=== PATIENT | female | born 1990 | race Caucasian/White ===

== ENCOUNTER → 2018-01-08 | Outpatient (CLI) | payer OTHER ==
[~2018-01-08] MED LIST: ACIDOPHILUS1 EAC1 PO; ALPR.5 PO; CEPH500; CLON2 PO; Cefpodoxime Pr100 MG PO; DIAZ5 PO; ERGO400 PO; FISH1000 PO; FOLGARD TABLET1 EACH PO; IBUP800; IBUP800 PO; IRON 100 PLUS1 EACH PO; LAMO100 PO; NAPR500 PO; NITR100CA PO; OXYACE5T; OXYACE5T PO; PR NATAL 400 C1 EACH PO; Percocet 5-3251 EACH PO; Pyridium200 MG PO; QUET100 PO; ZOLP10 PO
== END | disposition home or self-care (01) ==
LOC: LAB SHORT 16:03 → LAB 16:03
PROVIDERS: Obstetrics & Gynecology
DX: Z12.4 Encounter for screening for malignant neoplasm of cervix (principal)
CPT/HCPCS: G0123

== ENCOUNTER 2019-06-15 02:14 | Inpatient (IN) | payer BC, OTHER ==
[~2019-06-15] VITALS: Ht 167.6 cm; Wt 71.8 kg
[2019-06-15 02:39] LABS: Source, Urine Clean Catch
[2019-06-15 02:42] LABS: Appearance, Urine Clear (Clear); Bilirubin, Urine Neg (Neg); Blood, Urine 5+ (Neg); Color, Urine Yellow (P-Yellow); Glucose Qualitative, Urine Neg (Neg); Ketones, Urine Neg (Neg); Leukocyte Esterase, Urine 1+ (Neg); Nitrite, Urine Neg (Neg); Protein, Urine Neg (Neg); Urobilinogen, Urine NORM (Normal)
[2019-06-15 02:48] LABS: Bacteria Many /hpf; Red Blood Cells, Urine 0-2 /hpf (0-2); Squamous Epithelial Cells Many /hpf (Few)
[2019-06-15 04:19] LABS: BASOPHILS ABSOLUTE AUTO 0.02 K/mm3 (0.00-0.23); BASOPHILS PERCENT AUTO 0 % (0-2); EOSINOPHILS ABSOLUTE AUTO 0.12 K/mm3 (0.00-0.68); EOSINOPHILS PERCENT AUTO 1 % (0-6); Hematocrit 33.5 % (33.0-51.0); Hemoglobin 11.4 g/dL (11.5-16.0); IMMATURE GRAN ABSOLUTE AUTO 0.04 K/mm3 (0.00-0.10); IMMATURE GRAN PERCENT AUTO 0 % (0-1); LYMPHOCYTES ABSOLUTE AUTO 1.33 K/mm3 (0.84-5.20); LYMPHOCYTES PERCENT AUTO 13 % (21-46); MONOCYTES ABSOLUTE AUTO 0.52 K/mm3 (0.16-1.47); MONOCYTES PERCENT AUTO 5 % (4-13); Mean Corpuscular HGB 30.3 pg (26.0-34.0); Mean Corpuscular Volume 89 fL (80-100); Mean Platelet Volume 11.4 fL (9.1-12.4); NEUTROPHILS ABSOLUTE AUTO 7.87 K/mm3 (1.96-9.15); NEUTROPHILS PERCENT AUTO 80 % (41-73); Platelet Count 144 K/mm3 (150-400); RDW Coefficient Variation 12.4 % (11.7-14.2); RDW Standard Deviation 40.4 fL (35.1-46.3); Red Blood Cell Count 3.76 M/mm3 (3.80-5.20)
[2019-06-15] MEDS ORDERED: LAMICTAL200 MG PO (07:44)
[2019-06-15] MEDS ORDERED: Seroquel Xr50 MG PO (07:45)
--- NOTE | 2019-06-15 11:35 | NUR ---
06/15/19 1135 Mckenna Nolasco REPEAT SECTION AND VIABLE FEMALE INFANT. APGARS 7/9. WEIGHT 7-10 ([id number]). CORD BLOOD GIVEN TO BABY RN. CORD SEGEMENT GIVEN TO RT.
[2019-06-16 05:24] LABS: BASOPHILS ABSOLUTE AUTO 0.02 K/mm3 (0.00-0.23); BASOPHILS PERCENT AUTO 0 % (0-2); EOSINOPHILS ABSOLUTE AUTO 0.15 K/mm3 (0.00-0.68); EOSINOPHILS PERCENT AUTO 2 % (0-6); Hematocrit 34.9 % (33.0-51.0); Hemoglobin 11.6 g/dL (11.5-16.0); IMMATURE GRAN ABSOLUTE AUTO 0.04 K/mm3 (0.00-0.10); IMMATURE GRAN PERCENT AUTO 0 % (0-1); LYMPHOCYTES ABSOLUTE AUTO 1.62 K/mm3 (0.84-5.20); LYMPHOCYTES PERCENT AUTO 17 % (21-46); MONOCYTES ABSOLUTE AUTO 0.47 K/mm3 (0.16-1.47); MONOCYTES PERCENT AUTO 5 % (4-13); Mean Corpuscular HGB 31.3 pg (26.0-34.0); Mean Corpuscular HGB Conc 33.2 g/dL (31.5-36.5); Mean Platelet Volume 11.2 fL (9.1-12.4); NEUTROPHILS ABSOLUTE AUTO 7.52 K/mm3 (1.96-9.15); NEUTROPHILS PERCENT AUTO 77 % (41-73); Platelet Count 151 K/mm3 (150-400); RDW Coefficient Variation 12.6 % (11.7-14.2); RDW Standard Deviation 43.7 fL (35.1-46.3); Red Blood Cell Count 3.71 M/mm3 (3.80-5.20); White Blood Cell Count 9.82 K/mm3 (4.00-11.30)
[2019-06-16 05:26] LABS: Mean Corpuscular Volume 94 fL (80-100)
--- NOTE | 2019-06-16 11:00 | NUR ---
PATIENT ALREADY HAS ACCOUNT SET UP THROUGH [email or web address]
--- NOTE | 2019-06-16 15:55 | NUR ---
CONSULT. MOM IS EXPERIENCED WITH BF, HAS USED SHIELD BOTH OTHER BABY'S, NIPPLES DO NOT CAMPBELL WITH STIMULATION, BABY SUCKLING, OR PUMPING. CURRENTLY AREOLA IS PLIABLE AND DEMO TO MOM HOW TO PRESENT NIPPLE AREA TO BABY TO HELP HER OBTAIN A LATCH. CURRENTLY BABY IS ASLEEP AND NOT ROUSING. INSTRUCT TO TRY TO SEE IF BABY CAN DIRECT LATCH AFTER ENGORGEMENT STARTS TO EASE, START WITH SHIELD FOR SEVERAL MINUTES, THEN REMOVE SHIELD AND TRY TO DIRECT LATCH. INSTRUCT IN CHANGES TO EXPECT DURING THE FIRST WEEK WITH FEEDINGS AND WITH BABY AND REFERRED TO BF BOOKLET FOR PHOTOS AND INFORMATION. QUESTIONS ANSWERED. WILL CALL IF SHE FEELS LIKE SHE NEEDS MORE HELP.
--- NOTE | 2019-06-17 12:36 | NUR ---
DISCHARGE INSTRUCTIONS, WRITTEN AND VERBAL, GIVEN TO PT. ANSWERED ALL QUESTIONS AND CONCERNS. FOLLOW UP APPOINTMENT SCHEDULE. PERSONAL BELONGINGS BEING GATHERED. AWAITING DISCHARGE INSTRUCTIONS FROM DR. GOLDMAN.
--- NOTE | 2019-06-17 15:47 | NUR ---
PT IS DISCHARGED TO [facility] STAT[facility] AT 1515.
== END 2019-06-17 15:15 | disposition home or self-care (01) | DRG 788 ==
LOC: OBS 02:14 → BC 02:15 → OBS 08:45 → BC 08:46
PROVIDERS: Advanced Practice Midwife; ADMIT Obstetrics & Gynecology
PROC: 10D00Z1 Extraction of Products of Conception, Low, Open Approach (ICD-10-PCS; principal; 2019-06-15 11:45)
DX: O34.211 Maternal care for low transverse scar from previous cesarean delivery (principal); O77.0 Labor and delivery complicated by meconium in amniotic fluid; Z3A.38 38 weeks gestation of pregnancy; Z37.0 Single live birth
CPT/HCPCS: 36415; 81001; 82803; 85025; 86850; 86900; 86901; 87086; J0694; J1885; J2405; J2590; J2765; J3010; J7120

== ENCOUNTER → 2021-07-17 | Outpatient (CLI) | payer BC, OTHER ==
[~2021-07-17] MED LIST changes: +LAMICTAL200 MG PO; +Seroquel Xr50 MG PO
== END | disposition home or self-care (01) ==
LOC: LAB SHORT 11:54
DX: R30.0 Dysuria (principal)
CPT/HCPCS: 87086

== ENCOUNTER 2021-07-21 04:31 | Emergency (ER) | payer BC, OTHER ==
[~2021-07-21] VITALS: Ht 167.6 cm; Wt 55.3 kg
[2021-07-21] MEDS ORDERED: BUPR75 (05:09)
[2021-07-21 05:10] LABS: Source, Urine Clean Catch
[2021-07-21] MEDS ORDERED: CLON1 (05:10)
[2021-07-21 05:15] LABS: Blood, Urine 5+ (Neg); Glucose Qualitative, Urine Neg (Neg); Ketones, Urine Neg (Neg); Leukocyte Esterase, Urine 3+ (Neg); Nitrite, Urine Pos (Neg); Protein, Urine 3+ (Neg); Specific Gravity, Urine 1.015 (1.003-1.022); Urobilinogen, Urine 4+ (Normal)
[2021-07-21 05:19] LABS: Bilirubin, Urine 3+ (Neg)
[2021-07-21 05:20] LABS: Appearance, Urine Cloudy (Clear); Color, Urine Orange (P-Yellow)
[2021-07-21 05:23] LABS: Bacteria Many /hpf; Red Blood Cells, Urine TNTC /hpf (0-2); Squamous Epithelial Cells Few /hpf (Few); White Blood Cells, Urine TNTC /hpf (0-5)
[2021-07-21] MEDS ORDERED: MACRODANTIN PO (05:40)
== END 2021-07-21 06:05 | disposition home or self-care (01) ==
LOC: ER 04:31
PROVIDERS: Student in an Organized Health Care Education/Training Program
DX: N39.0 Urinary tract infection, site not specified (principal)
CPT/HCPCS: 81001; 87077; 87086; 87186; A9270

== ENCOUNTER → 2021-08-03 | Outpatient (CLI) | payer BC, OTHER ==
[~2021-08-03] MED LIST changes: +BUPR75; +CLON1; +MACRODANTIN PO
== END | disposition home or self-care (01) ==
LOC: LAB SHORT 18:16
DX: R30.0 Dysuria (principal)
CPT/HCPCS: 87086

== ENCOUNTER 2022-07-02 05:26 | Inpatient (IN) | payer OTHER ==
[~2022-07-02] VITALS: Ht 167.6 cm; Wt 71.2 kg
[2022-07-02 05:59] LABS: BASOPHILS ABSOLUTE AUTO 0.03 K/mm3 (0.00-0.23); BASOPHILS PERCENT AUTO 1 % (0-2); EOSINOPHILS ABSOLUTE AUTO 0.14 K/mm3 (0.00-0.68); EOSINOPHILS PERCENT AUTO 2 % (0-6); Hematocrit 33.5 % (33.0-51.0); Hemoglobin 11.5 g/dL (11.5-16.0); IMMATURE GRAN ABSOLUTE AUTO 0.03 K/mm3 (0.00-0.10); IMMATURE GRAN PERCENT AUTO 1 % (0-1); LYMPHOCYTES ABSOLUTE AUTO 1.98 K/mm3 (0.84-5.20); LYMPHOCYTES PERCENT AUTO 31 % (21-46); MONOCYTES ABSOLUTE AUTO 0.39 K/mm3 (0.16-1.47); MONOCYTES PERCENT AUTO 6 % (4-13); Mean Corpuscular HGB 28.6 pg (26.0-34.0); Mean Corpuscular HGB Conc 34.3 g/dL (31.5-36.5); Mean Corpuscular Volume 83 fL (80-100); Mean Platelet Volume 12.9 fL (9.1-12.4); NEUTROPHILS ABSOLUTE AUTO 3.83 K/mm3 (1.96-9.15); NEUTROPHILS PERCENT AUTO 60 % (41-73); Platelet Count 133 K/mm3 (150-400); RDW Standard Deviation 36.4 fL (35.1-46.3); Red Blood Cell Count 4.02 M/mm3 (3.80-5.20)
[2022-07-02] MEDS ORDERED: PRENATAL TABLE1 EAC2 (06:14)
--- NOTE | 2022-07-02 09:18 | NUR ---
07/02/22 0918 Sol Diaz 0904 DELIVERY VIABLE MALE , WEIGHT 3515GM 7# 12OZ, HEAD 13.5 INCHES, CHEST 13 INCHES, LENGTH 20 INCHES, APGARS 8/8, MECONIUM PRESENT
--- NOTE | 2022-07-02 13:28 | NUR ---
ASSUMED CARE RPT FOR Myriam HOWELL RN
--- NOTE | 2022-07-02 15:55 | NUR ---
PAIN SPOKE W/BAILEE RN RELATED TO PT PAIN STILL 04/07 - RN PLANS TO CALL DR GOLDMAN
--- NOTE | 2022-07-02 19:08 | NUR ---
REPT TO Hellen MACK RN
[2022-07-03 08:21] LABS: BASOPHILS ABSOLUTE AUTO 0.02 K/mm3 (0.00-0.23); BASOPHILS PERCENT AUTO 0 % (0-2); EOSINOPHILS ABSOLUTE AUTO 0.18 K/mm3 (0.00-0.68); EOSINOPHILS PERCENT AUTO 3 % (0-6); Hematocrit 32.2 % (33.0-51.0); Hemoglobin 10.5 g/dL (11.5-16.0); IMMATURE GRAN ABSOLUTE AUTO 0.04 K/mm3 (0.00-0.10); IMMATURE GRAN PERCENT AUTO 1 % (0-1); LYMPHOCYTES ABSOLUTE AUTO 1.46 K/mm3 (0.84-5.20); LYMPHOCYTES PERCENT AUTO 21 % (21-46); MONOCYTES PERCENT AUTO 4 % (4-13); Mean Corpuscular HGB 27.7 pg (26.0-34.0); Mean Corpuscular HGB Conc 32.6 g/dL (31.5-36.5); Mean Corpuscular Volume 85 fL (80-100); Mean Platelet Volume 12.5 fL (9.1-12.4); NEUTROPHILS ABSOLUTE AUTO 4.99 K/mm3 (1.96-9.15); NEUTROPHILS PERCENT AUTO 71 % (41-73); Platelet Count 120 K/mm3 (150-400); RDW Coefficient Variation 12.3 % (11.7-14.2); RDW Standard Deviation 38.1 fL (35.1-46.3); Red Blood Cell Count 3.79 M/mm3 (3.80-5.20); White Blood Cell Count 6.99 K/mm3 (4.00-11.30)
--- NOTE | 2022-07-04 11:53 | NUR ---
up amb in room, feels like the start of having to poop soon, but not yet. reports has taken mom and colace this morning,
--- NOTE | 2022-07-04 13:44 | NUR ---
dr tapia updated pt will be going to icu bed 6, dr tapia updating pt family member of pt being transfered, updating on whats been happening, and that will possibly be getting blood products. will wait for DA rn to come back then will help transfer pt upstairs.
--- NOTE | 2022-07-04 13:59 | NUR ---
service delivery supervisor called for update, working on a room. may not go to icu, service delivery supervisor will call back
--- NOTE | 2022-07-04 14:18 | NUR ---
report to RADHA lugo
[2022-07-04] MEDS ORDERED: IBU800 M1 PO (15:11)
[2022-07-04] MEDS ORDERED: Percocet 5-3251 EACH PO (15:11)
--- NOTE | 2022-07-04 16:30 | NUR ---
Printed d/c instructions and teaching reviewed pt who is an experienced mother. Questions answered to her satisfaction. No acute changes t/o shift. ID bands matched verification form and nb. Pt d/c'd home ambulatory to care of .
== END 2022-07-04 16:40 | disposition home or self-care (01) | DRG 788 ==
LOC: BC 05:26
PROVIDERS: ADMIT Obstetrics & Gynecology
PROC: 10D00Z1 Extraction of Products of Conception, Low, Open Approach (ICD-10-PCS; principal; 2022-07-02 07:30)
DX: O34.211 Maternal care for low transverse scar from previous cesarean delivery (principal); O48.0 Post-term pregnancy; Z3A.40 40 weeks gestation of pregnancy; Z37.0 Single live birth; Z79.899 Other long term (current) drug therapy
CPT/HCPCS: 36415; 85025; 86850; 86900; 86901; 86923; A9270; J0694; J1885; J2270; J2765; J3010; J7120

== ENCOUNTER → 2022-07-14 | Outpatient (CLI) | payer OTHER ==
[~2022-07-14] MED LIST changes: +Bupropion HCl75 MG PO; +IBU800 M1 PO; +PRED20 PO; +PRENATAL TABLE1 EAC2
[2022-07-14 14:10] LABS: BASOPHILS ABSOLUTE AUTO 0.01 K/mm3 (0.00-0.23); BASOPHILS PERCENT AUTO 0 % (0-2); EOSINOPHILS PERCENT AUTO 0 % (0-6); Hematocrit 41.2 % (33.0-51.0); Hemoglobin 13.6 g/dL (11.5-16.0); IMMATURE GRAN ABSOLUTE AUTO 0.04 K/mm3 (0.00-0.10); IMMATURE GRAN PERCENT AUTO 0 % (0-1); LYMPHOCYTES ABSOLUTE AUTO 1.99 K/mm3 (0.84-5.20); LYMPHOCYTES PERCENT AUTO 16 % (21-46); MONOCYTES ABSOLUTE AUTO 0.37 K/mm3 (0.16-1.47); MONOCYTES PERCENT AUTO 3 % (4-13); Mean Corpuscular HGB 27.9 pg (26.0-34.0); Mean Corpuscular Volume 85 fL (80-100); Mean Platelet Volume 11.3 fL (9.1-12.4); NEUTROPHILS PERCENT AUTO 81 % (41-73); Platelet Count 397 K/mm3 (150-400); RDW Coefficient Variation 12.8 % (11.7-14.2); RDW Standard Deviation 39.2 fL (35.1-46.3); Red Blood Cell Count 4.87 M/mm3 (3.80-5.20); White Blood Cell Count 12.71 K/mm3 (4.00-11.30)
[2022-07-14 14:24] LABS: Albumin, Blood 3.8 g/dL (3.4-5.0); Albumin/Globulin Ratio 0.9 (0.8-1.8); Bilirubin, Total 0.6 mg/dL (0.1-1.0); Bun/Creatinine Ratio 23.7 (12.0-20.0); Calcium, Blood 9.5 mg/dL (8.5-10.1); Creatinine, Blood 0.93 mg/dL (0.40-1.00); Globulin, Blood 4.3 g/dL (2.2-4.0); Potassium, Blood 4.1 mmol/L (3.5-5.5); Total Protein, Blood 8.1 g/dL (6.4-8.2)
== END | disposition home or self-care (01) ==
LOC: LAB SHORT 14:02 → LAB 14:02
PROVIDERS: Physician Assistant Medical
DX: R21 Rash and other nonspecific skin eruption (principal)
CPT/HCPCS: 80053; 85025

== ENCOUNTER → 2023-02-18 | Outpatient (CLI) | payer OTHER | END | disposition home or self-care (01) | LOC: LAB 11:23 → LAB SHORT 11:23 | DX: R35.0 Frequency of micturition (principal) | CPT/HCPCS: 87086 ==

== ENCOUNTER → 2023-03-10 | Outpatient (CLI) | payer OTHER | END | disposition home or self-care (01) | LOC: LAB 16:45 → LAB SHORT 16:45 | DX: R30.0 Dysuria (principal) | CPT/HCPCS: 87077; 87086; 87186 ==

== ENCOUNTER 2023-04-07 23:26 | Emergency (ER) | payer OTHER ==
[~2023-04-07] VITALS: Ht 167.6 cm; Wt 57.1 kg
[2023-04-07 23:45] VITALS: BP 121/98
[2023-04-08 00:35] LABS: Source, Urine Clean Catch
[2023-04-08 00:55] LABS: Blood, Urine 3+ (Neg); Glucose Qualitative, Urine Neg (Neg); Ketones, Urine Neg (Neg); Leukocyte Esterase, Urine 1+ (Neg); Nitrite, Urine Pos (Neg); Protein, Urine 1+ (Neg); Specific Gravity, Urine 1.025 (1.003-1.022); Urobilinogen, Urine 3+ (Normal)
[2023-04-08 00:56] LABS: Bilirubin, Urine 3+ (Neg)
[2023-04-08 00:57] LABS: Appearance, Urine Clear (Clear); Color, Urine Orange (P-Yellow)
[2023-04-08 01:05] LABS: Bacteria Rare /hpf; Red Blood Cells, Urine 25-50 /hpf (0-2); Squamous Epithelial Cells Rare /hpf (Few); White Blood Cells, Urine 0-2 /hpf (0-5)
== END 2023-04-08 01:20 | disposition home or self-care (01) ==
LOC: ER 23:26
PROVIDERS: Physician Assistant
DX: R30.0 Dysuria (principal); Z79.52 Long term (current) use of systemic steroids
CPT/HCPCS: 81001; 87086; 99284

== ENCOUNTER → 2023-05-10 | Outpatient (CLI) | payer OTHER | END | disposition home or self-care (01) | LOC: LAB SHORT 12:23 → LAB 12:23 | DX: R30.9 Painful micturition, unspecified (principal) | CPT/HCPCS: 87086 ==

== ENCOUNTER → 2023-07-12 | Outpatient (CLI) | payer OTHER | LOC: LAB 17:37 → LAB SHORT 17:37 | DX: R30.0 Dysuria (principal) | CPT/HCPCS: 87086 ==

== ENCOUNTER → 2023-09-04 | Outpatient (CLI) | payer OTHER ==
[~2023-09-04] MED LIST changes: +BUPR150ER PO; +CLON.5 PO; +Lamictal200 MG PO; +Toviaz8 MG PO
== END ==
LOC: LAB 09:33 → LAB SHORT 09:33
DX: R30.0 Dysuria (principal)
CPT/HCPCS: 87086

== ENCOUNTER 2023-09-07 22:13 | Observation (INO) | payer OTHER ==
[~2023-09-07] VITALS: Ht 167.6 cm; Wt 54.4 kg
[~2023-09-07 22:13] MED LIST changes: -BUPR150ER PO; -CLON.5 PO; -Lamictal200 MG PO; -Toviaz8 MG PO
[2023-09-07 23:40] LABS: BASOPHILS ABSOLUTE AUTO 0.03 K/mm3 (0.00-0.23); BASOPHILS PERCENT AUTO 1 % (0-2); EOSINOPHILS ABSOLUTE AUTO 0.39 K/mm3 (0.00-0.68); EOSINOPHILS PERCENT AUTO 10 % (0-6); Hematocrit 35.7 % (33.0-51.0); IMMATURE GRAN PERCENT AUTO 0 % (0-1); LYMPHOCYTES ABSOLUTE AUTO 2.48 K/mm3 (0.84-5.20); LYMPHOCYTES PERCENT AUTO 61 % (21-46); MONOCYTES ABSOLUTE AUTO 0.14 K/mm3 (0.16-1.47); MONOCYTES PERCENT AUTO 3 % (4-13); Mean Corpuscular HGB 30.2 pg (26.0-34.0); Mean Corpuscular HGB Conc 33.6 g/dL (31.5-36.5); Mean Corpuscular Volume 90 fL (80-100); Mean Platelet Volume 11.8 fL (9.1-12.4); NEUTROPHILS ABSOLUTE AUTO 1.05 K/mm3 (1.96-9.15); NEUTROPHILS PERCENT AUTO 26 % (41-73); Platelet Count 141 K/mm3 (150-400); RDW Coefficient Variation 12.2 % (11.7-14.2); Red Blood Cell Count 3.98 M/mm3 (3.80-5.20); White Blood Cell Count 4.09 K/mm3 (4.00-11.30)
[2023-09-07 23:41] LABS: Source, Urine Clean Catch
[2023-09-07 23:45] LABS: Bilirubin, Urine Neg (Neg); Blood, Urine Neg (Neg); Glucose Qualitative, Urine Neg (Neg); Ketones, Urine Neg (Neg); Leukocyte Esterase, Urine 2+ (Neg); Nitrite, Urine Neg (Neg); Protein, Urine 1+ (Neg); Urobilinogen, Urine 1+ (Normal)
[2023-09-07 23:56] LABS: Color, Urine Yellow (P-Yellow)
[2023-09-07 23:57] LABS: Appearance, Urine Hazy (Clear)
[2023-09-07 23:58] LABS: Amorphous Light (0-Heavy); Bacteria Mod /hpf; Red Blood Cells, Urine 0-2 /hpf (0-2); Squamous Epithelial Cells Mod /hpf (Few)
[2023-09-08 00:10] LABS: U Benzodiazapine Screen DETECTED; U Cannabinoids Screen DETECTED
[2023-09-08 00:11] LABS: U Amphetamine Screen Not Detected; U Barbituate Screen Not Detected; U Buprenorphine Screen Not Detected; U Cocaine Screen Not Detected; U Methadone Screen Not Detected; U Methamphetamine Screen Not Detected; U Opiates Screen Not Detected; U Oxycodone Screen Not Detected; U Phencyclidine Screen Not Detected
[2023-09-08 00:14] LABS: Ethanol (Alcohol), Blood, Med 37 mg/dL; Salicylate <1.7 mg/dL (2.8-20.0)
[2023-09-08 00:19] LABS: Acetaminophen, Random <2.0 ug/mL (10.0-30.0); Alanine Aminotransfer (ALT/SGP 24 U/L (12-78); Albumin, Blood 3.8 g/dL (3.4-5.0); Albumin/Globulin Ratio 1.3 (0.8-1.8); Alk Phos 40 U/L (50-136); Anion Gap 1 mmol/L (6-16); Aspartate Aminotrans (AST/SGOT 33 U/L (12-37); Bilirubin, Total 0.2 mg/dL (0.1-1.0); Blood Urea Nitrogen 15 mg/dL (8-24); Bun/Creatinine Ratio 18.6 (12.0-20.0); CO2, Blood 27 mmol/L (21-32); Calcium, Blood 8.4 mg/dL (8.5-10.1); Chloride, Blood 113 mmol/L (98-108); Creatinine, Blood 0.81 mg/dL (0.40-1.00); Glomerular Filtration Rate 99 (60-); Glucose, Blood 99 mg/dL (70-99); Potassium, Blood 4.2 mmol/L (3.5-5.5); Sodium, Blood 141 mmol/L (136-145); Total Protein, Blood 6.8 g/dL (6.4-8.2)
[2023-09-08] MEDS ORDERED: ChlordiazePOXIDE 25 MG Cap PO PRN (11:40)
[2023-09-08] MEDS ORDERED: CloNIDine 0.1 MG Tab PO PRN (11:40)
[2023-09-08] MEDS ORDERED: LORazepam 1 MG Tab PO PRN (11:40)
[2023-09-09 09:59] VITALS: BP 129/90
[2023-09-09] MEDS ORDERED: LamoTRIgine 100 MG Tab PO SCH (12:00)
[2023-09-09] MEDS ORDERED: buPROPion HCL 150 MG TAB.SR.12H PO SCH (12:00)
[2023-09-09] MEDS ORDERED: BUPR150ER PO (12:03)
[2023-09-09] MEDS ORDERED: Lamictal200 MG PO (12:03)
[2023-09-09] MEDS ORDERED: Toviaz8 MG PO (12:04)
[2023-09-09] MEDS ORDERED: CLON.5 PO (12:04)
[2023-09-09] MEDS ORDERED: Buprenorphine HCL/Naloxone HCL 2-0.5MG 1 EA SL ONE (14:35)
[2023-09-09] MEDS ORDERED: QUEtiapine Fumarate 100 MG Tab PO SCH (21:00)
== END 2023-09-09 20:25 ==
LOC: ER 22:13 → EOR 22:14
PROVIDERS: ADMIT Student in an Organized Health Care Education/Training Program
DX: F31.81 Bipolar II disorder (principal); R45.851 Suicidal ideations; F12.90 Cannabis use, unspecified, uncomplicated; Z79.899 Other long term (current) drug therapy
CPT/HCPCS: 80053; 81001; 81025; 85025; 87086; 93005; 93010; 99285-25; A9270; G0378; G0480; J0572

== ENCOUNTER → 2023-09-17 | Outpatient (CLI) | payer OTHER ==
[~2023-09-17] MED LIST changes: +BUPR150ER PO; +CLON.5 PO; +Lamictal200 MG PO; +Toviaz8 MG PO
[2023-09-17 13:42] LABS: Source, Urine Clean Catch
[2023-09-17 14:52] LABS: Bacteria Many /hpf; Squamous Epithelial Cells Few /hpf (Few); Transitional Epithelial Cells Rare /hpf (0-Rare); White Blood Cells, Urine TNTC /hpf (0-5)
[2023-09-17 14:53] LABS: Red Blood Cells, Urine 0-2 /hpf (0-2)
[2023-09-17 19:17] LABS: U Amphetamine Screen Not Detected; U Barbituate Screen Not Detected; U Benzodiazapine Screen DETECTED; U Buprenorphine Screen DETECTED; U Cannabinoids Screen DETECTED; U Cocaine Screen Not Detected; U Methadone Screen Not Detected; U Methamphetamine Screen Not Detected; U Opiates Screen Not Detected; U Oxycodone Screen Not Detected; U Phencyclidine Screen Not Detected
[2023-09-17 20:43] LABS: Bacterial Vaginosis PCR Negative (NEGATIVE); Candida Group, PCR NOT DETECTED (NOT DETECT); Candida glabrata-krusei, PCR DETECTED (NOT DETECT)
[2023-09-20 18:02] LABS: APTIMA MEDIA TYPE Urine; C. TRACHOMATIS BY TMA Negative (Negative); N. GONORRHOEAE BY TMA Negative (Negative); SPECIMEN SOURCE Urine
[2023-09-21 06:51] LABS: 11-NOR-9-CARBOXY-THC,URN,QUANT >500 ng/mL
[2023-09-21 08:30] LABS: BUPRENORPHINE GLUC,URN,QUANT 265 ng/mL; BUPRENORPHINE,URN,QUANT 13 ng/mL; NALOXONE,URN,QUANT <100 ng/mL; NORBUPRENORPHINE GLUC,UR,QUANT >1000 ng/mL; NORBUPRENORPHINE,URN,QUANT 399 ng/mL
[2023-09-21 13:30] LABS: 7-AMINOCLONAZEPAM, URN, QUANT 492 ng/mL; A-HYDROXYALPRAZOLAM, URN, QNT <5 ng/mL; A-HYDROXYMIDAZOLAM, URN, QNT <20 ng/mL; ALPRAZOLAM, URN, QUANT <5 ng/mL; CHLORDIAZEPOXIDE, URN, QUANT <20 ng/mL; CLONAZEPAM, URN, QUANT 9 ng/mL; DIAZEPAM, URN, QUANT <20 ng/mL; LORAZEPAM, URN, QUANT <20 ng/mL; MIDAZOLAM, URN, QUANT <20 ng/mL; NORDIAZEPAM, URN, QUANT <20 ng/mL; OXAZEPAM, URN, QUANT <20 ng/mL; TEMAZEPAM, URN, QUANT <20 ng/mL
== END | disposition home or self-care (01) ==
LOC: LAB 13:39 → LAB SHORT 13:39
PROVIDERS: Nurse Practitioner Family; Nurse Practitioner Psychiatric/Mental Health
DX: F31.81 Bipolar II disorder (principal); R30.0 Dysuria; Z79.899 Other long term (current) drug therapy
CPT/HCPCS: 81015; 87077; 87086; 87186; 87481; 87491; 87591; 87661; 87801; G0480; G0481

== ENCOUNTER → 2023-11-25 | Outpatient (CLI) | payer OTHER | LOC: LAB 16:55 → LAB SHORT 16:55 | DX: N39.0 Urinary tract infection, site not specified (principal) | CPT/HCPCS: 87077; 87086; 87186 ==

== ENCOUNTER 2024-07-06 13:03 | Inpatient (IN) | payer OTHER ==
[~2024-07-06] VITALS: Ht 167.6 cm; Wt 74.5 kg
[2024-07-06] VITALS (18 sets, daily range): BP systolic 96–118; BP diastolic 54–79
[~2024-07-06 13:03] MED LIST changes: +Citric Acid/Sodium Citrate 30 ML BTL PO SCH; +Lactated Ringer's 1,000 ML IV SCH; +Metoclopramide HCl 5MG / ML 2ML Vial IV ONE
[2024-07-06] MEDS ORDERED: CefOXitin Sodium 2,000 MG in NS 50 ML IV ONE (13:10)
[2024-07-06] MEDS ORDERED: LAMO100 (13:37)
[2024-07-06] MEDS ORDERED: BUPRENORPHINE HC2 MG SL (13:38)
[2024-07-06 13:45] LABS: BASOPHILS ABSOLUTE AUTO 0.02 K/mm3 (0.00-0.23); BASOPHILS PERCENT AUTO 0 % (0-2); EOSINOPHILS ABSOLUTE AUTO 0.21 K/mm3 (0.00-0.68); EOSINOPHILS PERCENT AUTO 3 % (0-6); Hematocrit 30.2 % (33.0-51.0); Hemoglobin 10.3 g/dL (11.5-16.0); IMMATURE GRAN ABSOLUTE AUTO 0.04 K/mm3 (0.00-0.10); IMMATURE GRAN PERCENT AUTO 1 % (0-1); LYMPHOCYTES ABSOLUTE AUTO 1.61 K/mm3 (0.84-5.20); LYMPHOCYTES PERCENT AUTO 22 % (21-46); MONOCYTES ABSOLUTE AUTO 0.31 K/mm3 (0.16-1.47); MONOCYTES PERCENT AUTO 4 % (4-13); Mean Corpuscular HGB 29.9 pg (26.0-34.0); Mean Corpuscular HGB Conc 34.1 g/dL (31.5-36.5); Mean Corpuscular Volume 88 fL (80-100); Mean Platelet Volume 11.8 fL (9.1-12.4); NEUTROPHILS ABSOLUTE AUTO 5.19 K/mm3 (1.96-9.15); NEUTROPHILS PERCENT AUTO 70 % (41-73); Platelet Count 141 K/mm3 (150-400); RDW Coefficient Variation 13.1 % (11.7-14.2); RDW Standard Deviation 41.7 fL (35.1-46.3); Red Blood Cell Count 3.45 M/mm3 (3.80-5.20); White Blood Cell Count 7.38 K/mm3 (4.00-11.30)
[2024-07-06] MEDS ORDERED: ePHEDrine Sulfate 50 MG/ML 1ML Injection ONE (16:46)
[2024-07-06] MEDS ORDERED: FentaNYL Citrate 50 MCG/ML 2 ML Injection ONE (16:46)
[2024-07-06] MEDS ORDERED: Glycopyrrolate 0.2 MG/ML 5ML VIAL ONE (16:46)
--- NOTE | 2024-07-06 17:06 | NUR ---
07/06/24 1706 Ami Girard REPEAT BABY BORN AT 1650, WEIGHT 3580 7-14 HEAD 14.25 CHEST 14 LENGTH 19.5
[2024-07-06] MEDS ORDERED: Ondansetron HCl 2 MG / ML 2ML Vial ONE (17:07)
[2024-07-06] MEDS ORDERED: Ketorolac Tromethamine 30mg Vial ONE (17:07)
[2024-07-06] MEDS ORDERED: Acetaminophen 500 MG Tab PO PRN (17:40)
[2024-07-06] MEDS ORDERED: DiphenhydrAMINE HCL 25 MG Cap PO PRN (17:45)
[2024-07-06] MEDS ORDERED: Methylergonovine Maleate 0.2MG / ML 1ML Amp IM PRN (17:45)
[2024-07-06] MEDS ORDERED: Lactated Ringer's 1,000 ML IV SCH (17:45)
[2024-07-06] MEDS ORDERED: Lanolin Cream TOP PRN (17:45)
[2024-07-06] MEDS ORDERED: Misoprostol 200 MCG Tab PR PRN (17:45)
[2024-07-06] MEDS ORDERED: Simethicone 80 MG Chew PO PRN (17:50)
[2024-07-06] MEDS ORDERED: OxyCODONE 5 mg/Acetamin 325 mg TABLET PO PRN (17:50)
[2024-07-06] MEDS ORDERED: OxyCODONE HCL 5 MG TAB PO PRN (17:50)
[2024-07-06] MEDS ORDERED: OXYTOCIN/RINGER'S LACTATE 500 ML IV SCH (17:50)
[2024-07-06] MEDS ORDERED: Ondansetron HCl 2 MG / ML 2ML Vial IV PRN (17:50)
[2024-07-06] MEDS ORDERED: Ketorolac Tromethamine 30mg Vial IV SCH (18:00)
[2024-07-06] MEDS ORDERED: Ketorolac Tromethamine 30mg Vial IV PRN (20:27)
[2024-07-06] MEDS ORDERED: Docusate Sodium 100 MG Cap PO SCH (21:00)
[2024-07-06] MEDS ORDERED: FentaNYL Citrate 50 MCG/ML 2 ML Injection IV PRN (21:20)
[2024-07-06] MEDS ORDERED: FentaNYL Citrate 50 MCG/ML 2 ML Injection IV ONE ×2 (21:20→23:45)
[2024-07-07] VITALS (7 sets, daily range): BP systolic 109–142; BP diastolic 74–81
[2024-07-07] MEDS ORDERED: Ibuprofen 400 MG Tab PO SCH
--- NOTE | 2024-07-07 00:21 | NUR ---
Pt resting well after several pain medications, heating pad and position changes. Pt has been crying, and guarding incisional sight. notified
[2024-07-07] MEDS ORDERED: fentaNYL citrate 50 MCG/ML 30MLSYR IV PRN (02:30)
[2024-07-07] MEDS ORDERED: fentaNYL citrate 20 MCG/ML 30MLSYR IV PRN (02:50)
--- NOTE | 2024-07-07 03:55 | NUR ---
0228 PT HAS BEEN VERY UNCOMFORTABLE THROUGHOUT THE NIGHT, SEVERAL MEDICATIONS HAVE BEEN USED, REPOSITIONING, ICE PACK, ABDOMINAL BINDER, AND WARM PACK. VITALS HAVE BEEN WNL, PROVIDER NOTIFIED AND REQUESTED FOR PAIN MANAGMENT. CAFE ASSOCIATE ORDERS RECIEVED AND STARTED, PT RESTING AT THIS TIME, CAPNOGRAPHY IN PLACE, PULSE OX IN PLACE, BUTTON WITHIN REACH WITH EDUCATION TO PATIENT OF ONLY HER USE, PT VOICED UNDERSTANDING.
[2024-07-07 06:07] LABS: BASOPHILS ABSOLUTE AUTO 0.02 K/mm3 (0.00-0.23); BASOPHILS PERCENT AUTO 0 % (0-2); EOSINOPHILS ABSOLUTE AUTO 0.22 K/mm3 (0.00-0.68); EOSINOPHILS PERCENT AUTO 3 % (0-6); Hematocrit 28.4 % (33.0-51.0); Hemoglobin 9.5 g/dL (11.5-16.0); IMMATURE GRAN ABSOLUTE AUTO 0.04 K/mm3 (0.00-0.10); IMMATURE GRAN PERCENT AUTO 1 % (0-1); LYMPHOCYTES ABSOLUTE AUTO 1.28 K/mm3 (0.84-5.20); LYMPHOCYTES PERCENT AUTO 16 % (21-46); MONOCYTES ABSOLUTE AUTO 0.55 K/mm3 (0.16-1.47); MONOCYTES PERCENT AUTO 7 % (4-13); Mean Corpuscular HGB 29.5 pg (26.0-34.0); Mean Corpuscular HGB Conc 33.5 g/dL (31.5-36.5); Mean Corpuscular Volume 88 fL (80-100); Mean Platelet Volume 11.9 fL (9.1-12.4); NEUTROPHILS ABSOLUTE AUTO 6.13 K/mm3 (1.96-9.15); NEUTROPHILS PERCENT AUTO 74 % (41-73); Platelet Count 129 K/mm3 (150-400); RDW Coefficient Variation 13.1 % (11.7-14.2); RDW Standard Deviation 42.2 fL (35.1-46.3); Red Blood Cell Count 3.22 M/mm3 (3.80-5.20); White Blood Cell Count 8.24 K/mm3 (4.00-11.30)
--- NOTE | 2024-07-07 06:34 | NUR ---
infant returned to mother, RN assisted positioning for breast feeding and hand expressing, nipple shield tried per mothers request. mother did not want continue to try requesting we take baby and feed donar milk
--- NOTE | 2024-07-07 08:39 | NUR ---
07-07-24 0830THIMary RN HAD A CONVERSATION WITH THE PATIENT WHILE HER WAS IN THE BATHROOM REGARDING HER BUPINORPHRINE USE. 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 SHE STATES THAT DR GOLDMAN TOLD HER THAT IS COULD CAUSE WITHDRAWL IN THE BABY, SO SHE HAS SLOWLY BEEN TAPERING OFF OF IT. SHE STATES THAT SHE HAS NOT TAKEN A DOSE SINCE SATURDAY. RN TOLD THE PATIENT THAT THE COMMUNITY HEALTH SPECIALIST WILL BRING IT UP WHEN SHE COMES, SO IF SHE STILL DOES NOT WANT HER TO KNOW ABOUT IT, THEN SHE WILL NEED TO ASK HIM TO LEAVE, YET BEING TRUTHFUL WITH HIM WOULD BE A BETTER IDEA. PT AGREED WITH THIS. PATIENT WOULD LIKE TO GET UP TO THE SHOWER AND HAVE HER CATHETER OUT ADN THE FENTANYL OFF
[2024-07-07] MEDS ORDERED: Prenatal Vit/FE Fumarate/FA 1 Tab PO SCH (09:00)
[2024-07-07] MEDS ORDERED: OxyCODONE HCL 5 MG TAB PO ONE (10:10)
--- NOTE | 2024-07-07 10:58 | NUR ---
24 1000 PT SAT UP IN CHAIR FOR ABOUT 20 MINUTES AFTER HER SHOWER AND TOLERATED WELL AND THEN CALLED RN TO ASHLEIGH ORTIZUE SHE WAS HAVING MORE PAIN AGAIN. ASSISTED PT TO RETURN TO BED, WARM BLANKET AND K PAD APPLIED TO ABD, AND CALL TO DR GOLDMAN REGARDING ANOTHER 5MG ROXICODE FOR BREAKTHROUGH PAIN. 1050, ASSISTED PT TO BATHROOM, WHICH SHE TOLERATED WELL YET CONTINUES TO BE UNCOMFORTABLE. PT AT THIS TIME STATED THAT SHE TOLD HER ABOUT THE BUPINORPHRINE, AFTER DR GOLDMAN SAID SOMETHING ABOUT IT ON HER ROUNDS, AND PATIENT IS VERY CONCERNED ABOUT WHAT HER FAMILY WILL THINK AND WHY THE BABY WILL STILL HAVE TO STAY IN THE HOSPITAL FOR 5 DAYS TO BE OBSERVED WITH THE ESC PROGRAM. RN ENCOURAGED PT TO CONTINUE TO BE HONEST ABOUT IT AND TO JUST TAKE IT ONE DAY AT A TIME, AND AT THIS MOMENT WE NEED TO HAVE HER MORE COMFORTABLE SO THAT SHE CAN BEGIN TO CARE FOR THE BABY HERSELF. PT ALSO VERBALIZED CONCERNS THAT SHE HAS NOT BEEN ABLE TO HOLD OR ROTHMAN WITH THE BABY BECASUE OF HER PAIN. THIS RN OFFEREND TO STAY IN THE ROOM IF SHE WANTED TO DO SOME SKIN TO SKIN WITH THE BABY AFTER HER FEED. PT WILL THINK ABOUT IT WHILE RN TAKES BABY TO NURSERY TO FEED,
[2024-07-07] MEDS ORDERED: OxyCODONE HCL 5 MG TAB PO PRN ×2 (11:00)
[2024-07-07] MEDS ORDERED: Ketorolac Tromethamine 30mg Vial IV PRN (12:05)
[2024-07-07] MEDS ORDERED: Polyethylene Glycol 3350 17 gm PO SCH (17:35)
[2024-07-07] MEDS ORDERED: Ibuprofen 400 MG Tab PO PRN (20:10)
[2024-07-08 02:24] VITALS: BP 129/81
[2024-07-08 06:02] VITALS: BP 120/81
--- NOTE | 2024-07-08 06:46 | NUR ---
pt rested well throughout the night, asked for pain meds when they were able to be given, continues to have pain in the incisional site. Dressing removed steri strips dry and intact, incision well approximated. Pt is voiding well, passing flatus and eating approprietly at this time. IV removed with qauze dressing added, pt tolerated well. Pt requested a bottle for the last two feeds due to pain she stated breast feeding caused her in her abdomin. Parents holding and responding to infants cues approprietly.
[2024-07-08 08:01] VITALS: BP 114/81
--- NOTE | 2024-07-08 09:00 | NUR ---
UP TO SHOWER INDEPENDANTLY. KEN WELL.
--- NOTE | 2024-07-08 10:18 | NUR ---
ASSUMED CARE FROM TRICIA GRAFF AT APPROX 1000
--- NOTE | 2024-07-08 13:37 | NUR ---
1330: Dr. Miles here to see pt to discuss d/c plan.
[2024-07-08 13:51] VITALS: BP 123/81
[2024-07-08] MEDS ORDERED: IBUP800 PO (14:00)
[2024-07-08] MEDS ORDERED: Percocet 5-3251 EACH PO (14:01)
[2024-07-08 16:00] VITALS: BP 116/80
--- NOTE | 2024-07-08 16:03 | NUR ---
D/C TO BOARDER STATUS
== END 2024-07-08 16:05 | disposition home or self-care (01) | DRG 785 ==
LOC: BC 13:03
PROVIDERS: ADMIT Obstetrics & Gynecology
PROC: 10D00Z1 Extraction of Products of Conception, Low, Open Approach (ICD-10-PCS; principal; 2024-07-06 15:00)
PROC: 0UB70ZZ Excision of Bilateral Fallopian Tubes, Open Approach (ICD-10-PCS; 2024-07-06 15:00)
DX: O34.211 Maternal care for low transverse scar from previous cesarean delivery (principal); Z98.890 Other specified postprocedural states; O99.343 Other mental disorders complicating pregnancy, third trimester; F41.0 Panic disorder [episodic paroxysmal anxiety]; Z79.899 Other long term (current) drug therapy; Z37.0 Single live birth; Z3A.39 39 weeks gestation of pregnancy
CPT/HCPCS: 36415; 85025; 86850; 86900; 86901; 86923; 88302; A9270; J0694; J1885; J2405; J2765; J3010; J7120

== ENCOUNTER → 2024-07-18 | Outpatient (CLI) | payer OTHER ==
[~2024-07-18] MED LIST changes: +BUPRENORPHINE HC2 MG SL; -Citric Acid/Sodium Citrate 30 ML BTL PO SCH; +LAMO100; -Lactated Ringer's 1,000 ML IV SCH; -Metoclopramide HCl 5MG / ML 2ML Vial IV ONE
[2024-07-18 12:14] LABS: BASOPHILS ABSOLUTE AUTO 0.01 K/mm3 (0.00-0.23); BASOPHILS PERCENT AUTO 0 % (0-2); EOSINOPHILS ABSOLUTE AUTO 0.23 K/mm3 (0.00-0.68); EOSINOPHILS PERCENT AUTO 4 % (0-6); Hematocrit 35.8 % (33.0-51.0); Hemoglobin 11.6 g/dL (11.5-16.0); IMMATURE GRAN ABSOLUTE AUTO 0.01 K/mm3 (0.00-0.10); IMMATURE GRAN PERCENT AUTO 0 % (0-1); LYMPHOCYTES ABSOLUTE AUTO 2.04 K/mm3 (0.84-5.20); LYMPHOCYTES PERCENT AUTO 36 % (21-46); MONOCYTES ABSOLUTE AUTO 0.18 K/mm3 (0.16-1.47); MONOCYTES PERCENT AUTO 3 % (4-13); Mean Corpuscular HGB 28.2 pg (26.0-34.0); Mean Corpuscular HGB Conc 32.4 g/dL (31.5-36.5); Mean Corpuscular Volume 87 fL (80-100); Mean Platelet Volume 10.5 fL (9.1-12.4); NEUTROPHILS ABSOLUTE AUTO 3.25 K/mm3 (1.96-9.15); NEUTROPHILS PERCENT AUTO 57 % (41-73); Platelet Count 246 K/mm3 (150-400); RDW Coefficient Variation 12.5 % (11.7-14.2); RDW Standard Deviation 39.9 fL (35.1-46.3); Red Blood Cell Count 4.12 M/mm3 (3.80-5.20); White Blood Cell Count 5.72 K/mm3 (4.00-11.30)
[2024-07-18 12:25] LABS: Albumin, Blood 3.4 g/dL (3.4-5.0); Albumin/Globulin Ratio 0.9 (0.8-1.8); Bilirubin, Total 0.6 mg/dL (0.1-1.0); Bun/Creatinine Ratio 17.2 (12.0-20.0); Calcium, Blood 8.5 mg/dL (8.5-10.1); Creatinine, Blood 0.87 mg/dL (0.40-1.00); Globulin, Blood 3.9 g/dL (2.2-4.0); Total Protein, Blood 7.3 g/dL (6.4-8.2)
== END | disposition home or self-care (01) ==
LOC: LAB 12:08 → LAB SHORT 12:08
PROVIDERS: Emergency Medicine
DX: M79.89 Other specified soft tissue disorders (principal); R60.0 Localized edema; R82.81 Pyuria
CPT/HCPCS: 80053; 83605; 85025; 87086